=== PATIENT | female | born 1995 | race Caucasian/White ===

== ENCOUNTER 2016-06-04 15:51 | Emergency (ER) | payer MEDICAID | END 2016-06-04 18:47 | disposition home or self-care (01) | LOC: D.ER 15:51 | DX: R19.7 Diarrhea, unspecified (principal); F32.9 Major depressive disorder, single episode, unspecified; F41.9 Anxiety disorder, unspecified ==

== ENCOUNTER 2016-06-06 03:11 | Emergency (ER) | payer MEDICAID | END 2016-06-06 04:08 | disposition home or self-care (01) | LOC: D.ER 03:11 | DX: S80.02XA Contusion of left knee, initial encounter (principal); Y93.55 Activity, bike riding; Y93.89 Activity, other specified; Y92.89 Other specified places as the place of occurrence of the external cause; S50.312A Abrasion of left elbow, initial encounter; F41.9 Anxiety disorder, unspecified; F32.9 Major depressive disorder, single episode, unspecified ==